=== PATIENT | female | born 1950 | race Caucasian/White ===

== ENCOUNTER 2019-12-01 16:33 | Emergency (ER) | payer MEDICARE, BC ==
[~2019-12-01] VITALS: Ht 167.6 cm; Wt 59.0 kg
[2019-12-01 16:43] VITALS: BP 106/62
--- NOTE | 2019-12-01 17:19 | Emergency Room Report ---
History of Present Illness General Chief Complaint: Multiple Trauma/Fall Source: Patient (Daily Kelly) Present Illness HPI 69-year-old female presents to the emergency department complaining of 10 out of 10 severity left arm left elbow pain status post mechanical trip and fall. Patient reports she did bump her head however she denies tenderness or pain. Patient denies headache. Patient denies nausea or vomiting. Patient reports pain is exacerbated upon palpation or movement of the left arm. Patient reports she is right-hand dominant. She denies any open wounds or bleeding. Denies midline neck or back pain. She denies numbness tingling or loss of sensation or gross motor movements of the extremities, incontinence of bowel or bladder. Denies CP, Palpitations, LOC, AMS, dizziness, Changes in Vision, weakness or a sudden severe headache. (Daily Kelly) Allergies: Uncoded Allergies: SUPREX (Allergy, Unknown, 12/01/19) COVID-19 Screening Contact w/high risk pt: No Recent Travel to affected area: No Experienced COVID-19 symptoms?: No COVID-19 Testing performed WEBSITE DESIGNER: No (Daily Kelly) Patient History Past Medical History: see triage record Past Surgical History: none Pertinent Family History: none Now: No Reviewed Nursing Documentation: PMH: Agreed; PSxH: Agreed (Daily Kelly) Nursing Documentation-PMH Past Medical History: No Stated History (Daily Kelly) Review of Systems All Other Systems: negative except mentioned in HPI (Daily Kelly) Physical Exam Vital Signs Date Time Temp Pulse Resp B/P (MAP) Pulse Ox O2 Delivery O2 Flow Rate FiO2 12/01/19 16:37 97.5 74 18 103/57 (72) 99 Room Air Sp02 EP Interpretation: reviewed, normal General Appearance: no apparent distress, alert, GCS 15, non-toxic Head: normocephalic, atraumatic Eyes: bilateral eye normal inspection, bilateral eye PERRL ENT: hearing grossly normal, normal voice Neck: full range of motion, no bony tend Respiratory: lungs clear, normal breath sounds, speaking full sentences Cardiovascular #1: regular rate, rhythm, normal capillary refill Cardiovascular #2: 2+ radial (R), 2+ radial (L) Musculoskeletal: normal range of motion, gait/station normal, tender - Left distal humerus and left elbow ttp. No swelling or bruising. Neurologic: alert, motor strength/tone normal, oriented x3, sensory intact, responsive, speech normal, grossly normal - radial and median nerves intact Psychiatric: judgement/insight normal Skin: no rash, normal color (Daily Kelly) Medical Decision Making PA Attestation Dr. Vogel is my supervising Physician whom patient management has been discussed with. (Daily Kelly) Medicare Attestation The history of Jessie Somers has been reviewed and management options for her have been examined and discussed by Carlito Vogel. I have personally examined and interviewed the patient. (Carlito Vogel MD) Diagnostic Impression: Primary Impression: Humerus fracture Qualified Codes: S42.215A - Unspecified nondisplaced fracture of surgical neck of left humerus, initial encounter for closed fracture ER Course 69-year-old female presents to the emergency department complaining of 10 out of 10 severity left arm left elbow pain status post mechanical trip and fall. Patient reports she did bump her head however she denies tenderness or pain. Patient denies headache. Patient denies nausea or vomiting. Patient reports pain is exacerbated upon palpation or movement of the left arm. Patient reports she is right-hand dominant. She denies any open wounds or bleeding. Denies midline neck or back pain. She denies numbness tingling or loss of sensation or gross motor movements of the extremities, incontinence of bowel or bladder. Denies CP, Palpitations, LOC, AMS, dizziness, Changes in Vision, weakness or a sudden severe headache. Ddx considered but are not limited to Fracture, dislocation, contusion, Sprain/ Strain/Spasm, Vital signs: are WNL, pt. is afebrile H&PE are most consistent with musculoskeletal injury will perform imaging to r/ o fractures/dislocations. ORDERS: - X-ray Left Humerus and Elbow - negative for fx, Dislocation, or significant soft tissue injury, per preliminary read in ED, and signed by SANTIAGO Kelly , my supervising physician has reviewed, and agrees with my interpretation. ED INTERVENTIONS: - Tylenol PO -Left Coaptation Splint applied by it technician. Pt. remains neurovascularly intact. - Left arm Sling applied by it technician. Pt. remains neurovascularly intact. -Pt. given printed as well as CD copy of her imaging. -- D/w pt. importance of leaving splint on, keeping it dry, and having very close outpatient orthopedic follow up. pt. instructed to contact her PCP for referral. If she does not have PCP she will be given orthopedic urgent care information for follow up. Given return to ED precautions for any worsening of her current symptoms or development of new symptoms. DISCHARGE: At this time pt. is stable for d/c to home. Will provide printed patient care instructions, and any necessary prescriptions. Care plan and follow up instructions have been discussed with the patient prior to discharge. (Daily Kelly) Other X-Ray Diagnostic Results Other X-Ray Diagnostic Results #1: X-Ray ordered: Left Elbow # of Views/Limited Vs Complete: 3 View Indication: Pain EP Interpretation: Yes PA Xray: Interpretation reviewed, by supervising MD, and agrees with findings. Interpretation: no dislocation, no soft tissue swelling, other - Fx of the surgical neck of the Humerus. Impression: Other - abnormal Electronically Signed by: Daily Kelly PA-C Other X-Ray Diagnostic Results #2: X-Ray ordered: Left Humerus # of Views/Limited Vs Complete: 3 View Indication: Pain EP Interpretation: Yes PA Xray: Interpretation reviewed, by supervising MD, and agrees with findings. Interpretation: no dislocation, no soft tissue swelling, no fractures Impression: No acute disease Electronically Signed by: Daily Kelly PA-C (Daily Kelly) Last Vital Signs Date Time Temp Pulse Resp B/P (MAP) Pulse Ox O2 Delivery O2 Flow Rate FiO2 12/01/19 16:43 97.5 79 18 106/62 99 Room Air Status: improved (Daily Kelly) Disposition: HOME, SELF-CARE Condition: Stable Scripts Acetaminophen With Codeine (T#3) (TYLENOL #3 TAB*) Y Tab 1 TAB ORAL Q6H PRN for For Pain, #12 TAB Prov: Daily Kelly 12/01/19 Ibuprofen* (MOTRIN*) 600 Mg Tablet 600 MG ORAL THREE TIMES A DAY, #30 TAB Prov: Daily Kelly 12/01/19 Referrals: Orthopedic Urgent Care Patient Instructions: Humerus Fracture Treated With Immobilization Additional Instructions: Take medications as directed. DO not drink alcohol, drive or operate heavy equipment while taking Tylenol # 3 as this contains an opiate which can impair your judgement. Follow up with an PILE OPERATOR in 3-5 days, even if your symptoms have resolved. If symptoms persist MRI may be required at the discretion of your PCP or Ortho Specialist. --Please review list of primary care clinics, if you do not already have a primary care provider who can give you an Orthopedic Referral. Return sooner to ED if new symptoms occur, or current symptoms become worse. - Please note that this Emergency Department Report was dictated using [employer] practice manager technology software, occasionally this can lead to erroneous entry secondary to interpretation by the dictation equipment. Daily Kelly December 01, 2019 17:19 Carlito Vogel MD Dec 13, 2019 13:28
[2019-12-01] MEDS ORDERED: IBUPROFEN600 M1 ORAL (17:32)
[2019-12-01] MEDS ORDERED: ACETAMINOPHEN-1 EAC1 ORAL (17:33)
--- NOTE | 2019-12-01 17:50 | Diagnostic Imaging Report ---
EXAM: XR Left Humerus, 2 or More Views CLINICAL HISTORY: PAIN TECHNIQUE: Frontal and lateral views of the left humerus. COMPARISON: No relevant prior studies available. FINDINGS: Bones/joints: Nondisplaced fracture of the humeral neck. No dislocation. Soft tissues: Unremarkable. IMPRESSION: Nondisplaced fracture of the humeral neck.
--- NOTE | 2019-12-01 17:52 | Diagnostic Imaging Report ---
EXAM: XR Left Elbow Complete, 3 or More Views CLINICAL HISTORY: PAIN TECHNIQUE: Frontal, lateral and oblique views of the left elbow. COMPARISON: No relevant prior studies available. FINDINGS: Bones/joints: No fracture or malalignment. Soft tissues: Unremarkable. IMPRESSION: No fracture or malalignment.
[2019-12-01 18:40] VITALS: BP 118/71
== END 2019-12-01 18:40 | disposition home or self-care (01) ==
LOC: EMR 16:50
DX: S42.215A Unspecified nondisplaced fracture of surgical neck of left humerus, initial encounter for closed fracture (principal); W01.0XXA Fall on same level from slipping, tripping and stumbling without subsequent striking against object, initial encounter; Y92.9 Unspecified place or not applicable; Z88.8 Allergy status to other drugs, medicaments and biological substances
CPT/HCPCS: 29105; 99284